=== PATIENT | female | born 1995 | race African-American/Black ===

== ENCOUNTER 2017-06-09 10:00 | Emergency (ER) | payer OTHER ==
[~2017-06-09] VITALS: Ht 160 cm; Wt 63.0 kg
[2017-06-09 10:31] VITALS: BP 104/62
== END 2017-06-09 15:16 | disposition left against medical advice (07) ==
LOC: ER 15:11
DX: Z53.21 Procedure and treatment not carried out due to patient leaving prior to being seen by health care provider (principal)

== ENCOUNTER 2019-05-11 14:32 | Emergency (ER) | payer SELFPAY ==
[~2019-05-11] VITALS: Ht 162.6 cm; Wt 65.0 kg
[2019-05-11] MEDS ORDERED: FAMOTIDINE 20MG/2ML VIAL IV STA (17:43)
[2019-05-11] MEDS ORDERED: SODIUM CHLORIDE 0.9% 1,000 ML IV ONE (17:43)
[2019-05-11 18:05] LABS: BASOPHILS % 0.7 % (0.0-2.0); EOSINOPHILS % 2.5 % (0.0-5.0); HEMATOCRIT. 39.4 % (36.0-48.0); HEMOGLOBIN. 13.6 g/dL (12.0-16.0); MEAN CORPUSCULAR HEMOGLOBIN 31.5 pg (28.0-32.0); MEAN PLATELET VOLUME 8.8 fl (7.4-10.4); MONOCYTES % 8.7 % (2.0-8.0); NEUTROPHILS % 45.1 % (40.0-76.0); PLATELET 249 x1000/uL (130-400); RED BLOOD CELL COUNT 4.33 mill/uL (4.2-5.4); RED CELL DISTRIBUTION WIDTH 12.6 % (11.6-14.6)
[2019-05-11 18:07] LABS: CHLORIDE 104 mEq/L (98-107)
[2019-05-11 18:08] LABS: PROTHROMBIN TIME 10.2 sec (9.6-11.0)
[2019-05-11 18:10] LABS: HCG SCREEN NEGATIVE
[2019-05-11] MEDS: ONDANSETRON HCL 4MG/2ML INJ IV STA ×2 (18:19→18:29)
[2019-05-11 19:10] LABS: CLARITY URINE CLEAR (CLEAR); COLOR URINE ORANGE (YELLOW); KETONES URINE NEGATIVE (NEGATIVE); LEUKOCYTE ESTERASE URINE NEGATIVE (NEGATIVE); NITRITE URINE NEGATIVE (NEGATIVE); OCCULT BLOOD URINE 3+ (NEGATIVE); PH URINE 6.5 (4.5-8.0); PROTEIN URINE TRACE (NEGATIVE)
[2019-05-11 19:19] LABS: *BARBITURATES SCREEN URINE NEGATIVE (NEGATIVE)
[2019-05-11 19:20] LABS: *BENZODIAZEPINES SCREEN URINE NEGATIVE (NEGATIVE); *COCAINE SCREEN URINE NEGATIVE (NEGATIVE); CANNABINOID URINE SCREEN NEGATIVE (NEGATIVE); METHADONE URINE SCREEN NEGATIVE (NEGATIVE); OPIATES URINE SCREEN NEGATIVE (NEGATIVE); PHENCYCLIDINE URINE SCREEN NEGATIVE (NEGATIVE)
[2019-05-11 19:21] LABS: *AMPHETAMINES SCREEN URINE NEGATIVE (NEGATIVE)
[2019-05-11 20:10] VITALS: BP 127/69
== END 2019-05-11 20:11 | disposition home or self-care (01) ==
LOC: ER 14:32
DX: R10.9 Unspecified abdominal pain (principal); R10.2 Pelvic and perineal pain
CPT/HCPCS: 36415; 80053; 80305; 81003; 83690; 84703; 85025; 85610; 96374; 96375; 99283; J2405; J3490; J7030